=== PATIENT | female | born 1995 ===

== ENCOUNTER 2017-10-11 15:09 | Emergency (ER) | payer SELFPAY ==
[2017-10-11] MEDS ORDERED: Albuterol/Ipratropium NEB.SOL* Albuterol 2.5 MG/Ipratropium 0.5 MG 3 ML INH ONE (15:38)
--- NOTE | 2017-10-11 15:40 | UC ---
Throat Pain/Nasal Judah HPI - HPI Summary HPI Summary: This is Baldev alvarez, documenting for attending Samina Zhu MD. Pt is a 22 y/o F c/o throat pain and congestion onset ~3 days ago. Pt states throat feels full. Painful swallowing. No drooling. Pt states when takes a deep breath feels like pressure in the midline upper sternal area. No pain at rest. Pt reports also with deep breath feels "pinch" over left lower lung. No SOB. Pt reports sinus pressure. Pt with cough with yellow sputum. mild wheeze. No abd pain. No n/v/d. Pt has taken Sudaged and Mucinex with little improvement. No sick contact. no travel. No h/o asthma but has use an MDI previously - did not use this illness. No travel. No h/o blood clots personally or family. Pt's medications reviewed this visit. - History of Current Complaint Chief Complaint: UCChestPain Stated Complaint: SHORTNESS OF BREATH,CHEST PAIN,DIZZY Time Seen by Provider: 10/11/17 15:18 Hx Obtained From: Patient Hx Last Menstrual Period: 06/07/17 Onset/Duration: Gradual Onset Pain Intensity: 1 Pain Scale Used: 0-10 Numeric Cough: Productive Associated Signs & Symptoms: Positive: Wheezing - Allergies/Home Medications Allergies/Adverse Reactions: Allergies Allergy/AdvReac Type Severity Reaction Status Date / Time No Known Allergies Allergy Verified 10/11/17 15:28 Home Medications: Home Medications Gabapentin CAP(*) [Neurontin 100 mg CAP(*)] 200 mg PO DAILY 10/11/17 [History Confirmed 10/11/17] Guaifenesin/Dextromethorphan [Mucinex Dm ER 600-30 mg Tablet] 1 tab PO Q12HR PRN 10/11/17 [History Confirmed 10/11/17] Pseudoephedrine TAB* [Sudafed TAB*] 60 mg PO Q8HR PRN 10/11/17 [History Confirmed 10/11/17] lamoTRIgine TAB(*) [Lamictal TAB(*)] 100 mg PO DAILY 10/11/17 [History Confirmed 10/11/17] PMH/Surg Hx/FS Hx/Imm Hx Previously Healthy: Yes Endocrine History: Other Other Endocrine History: NEG: DM Cardiovascular History: Other Other Cardiovascular History: NEG: CAD, HTN - Surgical History Surgical History: Yes Surgery Procedure, Year, and Place: breast augmentation. tonsilectomy - Family History Known Family History: Negative: Cardiac Disease, Hypertension, Diabetes - Social History Occupation: Unemployed, Student Lives: Alone Alcohol Use: Weekly Substance Use Type: None Smoking Status (MU): Light Every Day Tobacco Smoker Type: Cigarettes Amount Used/How Often: 1 pack/3 days Review of Systems Constitutional: Negative Skin: Negative ENT: Sore Throat, Sinus Congestion Respiratory: Shortness Of Breath, Cough - productive, Other - POS: wheezing. Cardiovascular: Chest Pain - "pressure" Motor: Negative All Other Systems Reviewed And Are Negative: Yes Physical Exam - Summary Physical Exam Summary: Vital Signs Reviewed: Yes A+Ox3, no distress Eyes: Conjunctiva Clear, CHESTER. EOM intact and full ENT: Hearing grossly normal TM x 2 clear, turbinates inflammed and boggy. + TTP max sinus L>R + PND mmoist, uvula midline, no exudate, no erythema Neck: Positive: Supple Respiratory: Positive: + intermittent coarse cough. mild scattered wheeze. rhonci left lung base No respiratory distress, No accessory muscle use + CTA throughout no w/r chest sternal pain reproducible with direct palpation Cardiovascular: RRR nl s1, s2 no m/r CBT <2 sec abd soft + BS nt/nd no guarding, no distension Musculoskeletal Exam: BURNS x 4 without difficulty Strength Intact, ROM Intact Neurological: Positive: Alert, + sensation throughout Psychological: Positive: Normal Response To Family Skin: Positive: no rash, no ecchymosis Triage Information Reviewed: Yes Vital Signs: Initial Vital Signs Temp 98.6 F 10/11/17 15:12 Pulse 84 10/11/17 15:12 Resp 18 10/11/17 15:12 BP 122/78 10/11/17 15:12 Pulse Ox 100 10/11/17 15:12 Diagnostics - Radiology CXR Xray Interpretation: No Acute Changes - IMPRESSION: No evidence for pneumonia. No evidence for acute intrathoracic disease. Radiology Interpretation Completed By: Radiologist - ED physician reviewed this radiology report. - EKG EKG Comments: 1514 Cardiac Rate: NL - 82 bpm Cardiac Rhythm: Sinus: Normal ST Segment: Normal Re-Evaluation - Re-Evaluation First Eval Re-Evaluation Time: 16:39 Change: Improved Comment: She is feeling better; pain has resolved; wheezing has resolved since treatment. coughing improved. Will Rx Albuterol MDI and Amox. secretion precaution. return precaution. physician referral center. pt comfortable and in agreement with plan Throat Pain/Nasal Course/Dx - Course Course Of Treatment: Patient presents to urgent care reporting 3-4 days of head cold. Patient reports she's got some ear fullness, sinus pressure, sore throat. Patient states today she felt a little short of breath related to her sore throat and postnasal drip. Patient also complaining of substernal chest pain that is worse with deep breath. On exam, patient with turbinates inflamed , mild erythema of her posterior pharynx. Patient also with postnasal drip. Patient with reproducible chest wall pain along her anterior sternum. Patient does have some scattered wheezes and rhonchi left base. Patient without any accessory muscle use. Patient's vital signs stable and reviewed. Patient's EKG also reviewed are findings. We'll give a DuoNeb, his chest x-ray, check for rapid strep. Patient comfortable in agreement with plan. - Differential Dx/Diagnosis Provider Diagnoses: acute sinusitis. acute bronchitis Discharge - Sign-Out/Discharge Documenting (check all that apply): Patient Departure - Patient will be discharged home. All imaging exams completed and their final reports reviewed: Yes - Discharge Plan Condition: Stable Disposition: HOME Prescriptions: Albuterol HFA INHALER* [Ventolin HFA Inhaler*] 1 puff INH Q4H PRN #1 mdi PRN Reason: wheeze, cough Amoxicillin PO (*) [Amoxicillin 500 MG CAP*] 500 mg PO Q12H #20 cap Patient Education Materials: Acute Bronchitis (ED), Rhinosinusitis (ED) Referrals: [facility] [Outside] - 2 Days Additional Instructions: - Stay well hydrated. Drink plenty of non-alcoholic, non-caffinated beverages. - Alternate ibuprofen (Advil, Motrin) 600mg and Tylenol every 3 hours for pain or fever. Take with food. Do NOT take for more than 4-5 days. - These infections are spread by secretions - do NOT share eating or drinking utensils - clean items you share with other people such as cell phones, computer mouse, TV remote, computer tablets,etc. Once you have been antibiotics for 2 days, change your toothbrush and your pillowcase. --Use your albuterol puffer - 2 puffs ever 4-6 hours for the next 2 days - then as needed - get plenty of restful sleep - okay to take over the counter decongestant and cough medication - contact your doctor or return with questions or concerns. you have been given referral information for the physician referral center - okay to contact them to establish with a primary care provider - Billing Disposition and Condition Condition: STABLE Disposition: Home - Attestation Statements Document Initiated by Lilyibe: Yes Documenting Scribe: Baldev Marshall Provider For Whom Scribe is Documenting (Include Credential): Samina Zhu Scribe Attestation: IBaldev, lilyibed for Samina hZu on 10/11/17 at 1811. Scribe Documentation Reviewed: Yes Provider Attestation: The documentation as recorded by the scribeBaldev accurately reflects the service I personally performed and the decisions made by me, Samina Zhu
--- NOTE | 2017-10-11 16:25 | RAD ---
INDICATION: Cough, wheezing, rhonchi at the LEFT lung base. Chest pain. COMPARISON: No relevant prior exams available on the [facility] PACS for comparison. TECHNIQUE: Dual energy PA and routine lateral views of the chest were obtained. REPORT: Breast augmentation prostheses noted. Clear lungs and pleural spaces. Negative for pneumothorax. The heart, pulmonary vasculature, and mediastinal contours are unremarkable. Unremarkable osseous structures and soft tissue contours. IMPRESSION: #. No evidence for pneumonia. No evidence for acute intrathoracic disease.
== END 2017-10-11 16:55 | disposition home or self-care (01) ==
LOC: UCEAST 15:09
DX: J01.90 Acute sinusitis, unspecified (principal); J20.9 Acute bronchitis, unspecified; F17.210 Nicotine dependence, cigarettes, uncomplicated
CPT/HCPCS: 71046; 87651; 93005; 99202; A9270-GY; G0463

== ENCOUNTER 2017-10-16 05:28 | Emergency (ER) | payer SELFPAY ==
--- NOTE | 2017-10-16 05:58 | ED ---
HPI Chest Pain - HPI Summary HPI Summary: Pt. is a 22 y.o female who presents to the ER with complaints of chest pain, SOB , left posterior shoulder pain and decreased sensation to left arm. Pt. states symptoms started about an hour ago when she was hanging out with friends. Pt. admits to 5-6 ETOH drinks [employer]. She denies any falls or trauma. Past medical hx of anxiety and depression. Pt. states she was treated for bronchitis last week and her symptoms have been improving. She is on OCP. Pt. otherwise denies h/a, injury, abd. pain, V/D, urinary sxs. Symptoms are moderate in severity. Moving left arm and deep inspiration makes symptoms worse. Rest makes symptoms better. - History of Current Complaint Chief Complaint: EDChestWallPain Time Seen by Provider: 10/16/17 05:48 Hx Obtained From: Patient Hx Last Menstrual Period: 06/07/17 Pain Intensity: 4 - Allergy/Home Medications Allergies/Adverse Reactions: Allergies Allergy/AdvReac Type Severity Reaction Status Date / Time No Known Allergies Allergy Verified 10/11/17 15:28 PMH/Surg Hx/FS Hx/Imm Hx Respiratory History: Reports: Hx Asthma - Surgical History Surgery Procedure, Year, and Place: breast augmentation. tonsilectomy Infectious Disease History: No Infectious Disease History: Denies: Traveled Outside the [place] in Last 30 Days - Family History Known Family History: Negative: Cardiac Disease, Hypertension, Diabetes - Social History Alcohol Use: Weekly Substance Use Type: Reports: None Hx Tobacco Use: Yes Smoking Status (MU): Light Every Day Tobacco Smoker Type: Cigarettes Amount Used/How Often: 1 pack/3 days Review of Systems Constitutional: Negative Eyes: Negative ENT: Negative Positive: Chest Pain Positive: Shortness Of Breath Gastrointestinal: Negative Genitourinary: Negative Positive: Other - Pain to left shoulder Positive: Paresthesia - left arm Positive: Anxious All Other Systems Reviewed And Are Negative: Yes Physical Exam Triage Information Reviewed: Yes Vital Signs On Initial Exam: Initial Vitals Temp Pulse Resp BP Pulse Ox 98.7 F 86 18 120/78 98 10/16/17 05:32 10/16/17 05:32 10/16/17 05:32 10/16/17 05:32 10/16/17 05:32 Vital Signs Reviewed: Yes Appearance: Positive: Well-Appearing - Pt. sitting up in bed in NAD. Anxious. Skin: Positive: Warm, Dry Head/Face: Positive: Normal Head/Face Inspection Eyes: Positive: Normal, EOMI, CHESTER, Conjunctiva Clear ENT: Positive: Pharynx normal, TMs normal Neck: Positive: Supple, Other: - No midline tenderness. Pain over the left trapezius muslce. Respiratory/Lung Sounds: Positive: Clear to Auscultation, Breath Sounds Present Cardiovascular: Positive: Normal, RRR Musculoskeletal: Positive: Other - Pain on palpation to left trapezius muslce. Pain with rotation of left shoulder. Good radial pulse. 5/5 strength in bilateral UEs and LEs. Subjective decreased senstation to left forearm. Neurological: Positive: Normal, Alert, Oriented to Person Place, Time, CN Intact II-III, Normal Gait, Finger to Nose - normal, Facial Symmetry, Speech Normal. Negative: Abnormal Gait, Receptive Aphasia, Expressive Aphasia, Cerebellar Dysfunction, Slurred Speech, Pronator Drift Present Psychiatric: Positive: Anxious - [place] Coma Scale Best Eye Response: 4 - Spontaneous Best Motor Response: 6 - Obeys Commands Best Verbal Response: 5 - Oriented Coma Scale Total: 15 Diagnostics - Vital Signs Vital Signs Temp Pulse Resp BP Pulse Ox 10/16/17 05:32 98.7 F 86 18 120/78 98 - Laboratory Result Diagrams: 10/16/17 06:45 10/16/17 06:45 Lab Statement: Any lab studies that have been ordered have been reviewed, and results considered in the medical decision making process. Chest Pain Course/Dx - Course Course Of Treatment: Pt. presenting with subjective paresthesias to left arm as well as shoulder pain and chest pain. Pt. is afebrile with stable vital signs. She has no neurological deficits onexam. Pt. admits to drinking tonight and is very anxious. Her shoulder pain is reproducible. Pt. denies any falls or trauma. Will obtain labs, ecg, chest xray and head ct for further evaluation. WIll give pt. IV fluids, ativan and toradol for pain and muscle relaxant. Blood work is unremarkable including negative d dimer. CT scan and cxr are negative for acute findings per radiology. ECG done at 0609 shows a sinus rhythm of 65 bpm, normal axis, appropriate intervals, early repol. On re-exam pt. is sleeping. Her sxs have improved. She was up to restroom with nurse. She still is rather sleepy after medication. Pt. was examined by Dr. Monreal who feel her sxs are most likely cervical radiculopathy. Pt. observed until she was more awake and dc home. Advised to f.u with [facility] for further evaluation. Tylenol or motrin for pain as directed. To return to ER is sxs change or worsen. - Diagnoses Provider Diagnoses: Atypical chest pain, Cervical radiculopathy Discharge - Sign-Out/Discharge Documenting (check all that apply): Patient Departure - Discharge Plan Condition: Good Disposition: HOME Patient Education Materials: Chest Pain (ED), Cervical Radiculopathy (ED) Referrals: [facility] [Outside] No Primary Care Phys,NOPCP [Primary Care Provider] - Additional Instructions: Call the [facility] tomorrow to schedule a follow up appointment Increase fluids Tylenol or Motrin for pain as directed Apply warm compresses to neck/back Return to ER if symptoms change or worsen - Billing Disposition and Condition Condition: GOOD Disposition: Home
[2017-10-16] MEDS ORDERED: NS 0.9% 1000 ML* 1,000 ML IV ONE (05:59)
[2017-10-16] MEDS ORDERED: LORazepam INJ* 2 MG/ML 1 ML VIAL IV PUSH ONE (06:13)
--- NOTE | 2017-10-16 06:51 | RAD ---
EXAM: CT Head Without Intravenous Contrast CLINICAL HISTORY: 22 years old, female; Signs and symptoms; Numbness / parasthesia; Left; Additional info: Left arm numbness TECHNIQUE: Axial computed tomography images of the head/brain without intravenous contrast. All CT scans at this facility use at least one of these dose optimization techniques: automated exposure control; mA and/or kV adjustment per patient size (includes targeted exams where dose is matched to clinical indication); or iterative reconstruction. COMPARISON: No relevant prior studies available. FINDINGS: Brain: Unremarkable. No hemorrhage. No significant white matter disease. No edema. Ventricles: Unremarkable. No ventriculomegaly. Bones/joints: Unremarkable. No acute fracture. Soft tissues: Unremarkable. Sinuses: Unremarkable as visualized. No acute sinusitis. Mastoid air cells: Unremarkable as visualized. No mastoid effusion. IMPRESSION: Normal head/brain CT.
[2017-10-16] MEDS ORDERED: Ketorolac INJ* 30 MG/ML 1 ML VIAL IV PUSH ONE (06:52)
[2017-10-16 07:01] LABS: ABS Basophils 0 10^3/ul (0-0.2); ABS Eosinophils 0 10^3/ul (0-0.6); ABS Lymphocytes 3.4 10^3/ul (1.0-4.8); ABS Monocytes 0.4 10^3/ul (0-0.8); ABS Neutrophils 2.5 10^3/ul (1.5-7.7); ABS Nucleated RBC 0 10^3/ul; Eosinophil % 0.7 % (0-6); Hematocrit 32 % (35-47); Hemoglobin 10.9 g/dl (12.0-16.0); Lymphocyte % 53.1 % (25-47); Mean Corpuscular HGB Conc 34 g/dl (31-36); Mean Corpuscular Hemoglobin 31 pg (27-31); Mean Corpuscular Volume 91 fL (80-97); Mean Platelet Volume 8.6 um3 (7.4-10.4); Nucleated Red Blood Cells % 0.1; Platelet Count 241 10^3/ul (150-450); Red Blood Count 3.49 10^6/ul (4.00-5.40); Red Cell Distribution Width 13 % (10.5-15); White Blood Count 6.4 10^3/ul (3.5-10.8)
[2017-10-16 07:19] LABS: EGFR Non-African American 156.5 (>60)
[2017-10-16] MEDS ORDERED: Potassium Chlor TAB* 20 MEQ TAB.ER PO ONE (07:21)
--- NOTE | 2017-10-16 08:58 | RAD ---
Indication: Chest pain. Single frontal view of the chest performed at 0615 hours was reviewed. Comparison is made with previous exam dated October 11, 2017. No mediastinal shift is noted. Heart is of normal size and configuration. Lung eden appear clear. No pneumothorax is identified. IMPRESSION: NO ACTIVE CARDIOPULMONARY DISEASE IS NOTED.
[2017-10-16 09:49] LABS: Urine Appearance Clear; Urine Blood Negative (Negative); Urine Color Yellow; Urine Ketones Trace (Negative); Urine Protein Negative (Negative); Urine Specific Gravity 1.014 (1.010-1.030); Urine Urobilinogen Negative (Negative)
[2017-10-16 10:26] VITALS: BP 114/65
== END 2017-10-16 10:49 | disposition home or self-care (01) ==
LOC: ED 05:28
DX: R07.89 Other chest pain (principal); M54.12 Radiculopathy, cervical region; F17.210 Nicotine dependence, cigarettes, uncomplicated
CPT/HCPCS: 36415; 70450; 71045; 80053; 80320; 81003; 83735; 84484; 84702; 85025; 85379; 85730; 93005; 96361; 96374; 96375; 99283; A9270-GY; G0480; J1885; J2060

== ENCOUNTER 2017-11-13 18:01 | Emergency (ER) | payer SELFPAY ==
[2017-11-13] MEDS ORDERED: NS 0.9% 500 ML* 500 ML IV ONE (18:26)
--- NOTE | 2017-11-13 18:36 | ED ---
Head Injury - HPI Summary HPI Summary: Patient is a 22 y/o F w/ c/o head injury occurring two days ago. She states that she fainted at 0700, fell and hit her head. LOC was experienced. She woke up and noted a laceration to her left forehead. Patient states that she vomited shortly after waking up. She went to [facility] and had her laceration stitched that day. She did not receive imaging and bloodwork at [facility]. Patient was told that she was likely concussed and to seek further treatment if any worsening Sx arose. She states she has had BRO, neck pain, and dizziness which have progressively worsened since two days ago. Patient also notes experiencing episodes of blurred vision, confusion and nausea. She states she had an episode today at 1700 where her vision almost went black. She went to [facility] and was told to come to ED as they could not do a CT there at the time. PMHx of depression and anxiety. Patient takes gabapetntin, ativan and xanax. She reports Hx of cocaine usage, alcohol usage. Patient notes that she drank heavily the night before the syncopal episode. Last cocaine usage was a month ago. FMHx of HTN, diabetes, heart disease is denied. On triage, pain is rated 7/ 10. Home medications and allergies are reviewed. Possibility of is denied. - History Of Current Complaint Chief Complaint: EDHeadInjury Stated Complaint: DIZZINESS/HEADACHE/STIFF NECK Time Seen by Provider: 11/13/17 18:09 Hx Obtained From: Patient Hx Last Menstrual Period: 06/07/17 Mechanism Of Injury: Fall From A Standing Position Onset/Duration: Started Days Ago - two days ago, Still Present Severity Initially: Severe - 7/10 Pain Intensity: 7 Pain Scale Used: 0-10 Numeric - 7/10 Location of Head Injury: Other: - laceration at left forehead Associated Signs And Symptoms: LOC Duration Unknown, Confusion, Neck Pain, Nausea, Vomiting, Headache, Visual Changes, Other: - dizziness - Allergies/Home Medications Allergies/Adverse Reactions: Allergies Allergy/AdvReac Type Severity Reaction Status Date / Time No Known Allergies Allergy Verified 11/13/17 18:03 Home Medications: Home Medications ALPRAZolam [Alprazolam] 1 mg PO SEE INSTRUCTIONS PRN 11/13/17 [History Confirmed 11/13/17] LORazepam [Lorazepam] 0.5 mg PO BID 11/13/17 [History Confirmed 11/13/17] PMH/Surg Hx/FS Hx/Imm Hx Endocrine/Hematology History: Denies: Hx Diabetes Cardiovascular History: Denies: Hx Hypertension Respiratory History: Reports: Hx Asthma - Surgical History Surgery Procedure, Year, and Place: breast augmentation. tonsilectomy Infectious Disease History: No Infectious Disease History: Denies: Traveled Outside the [place] in Last 30 Days - Family History Known Family History: Negative: Cardiac Disease, Hypertension, Diabetes - Social History Alcohol Use: Weekly Substance Use Type: Reports: None Hx Tobacco Use: Yes Smoking Status (MU): Light Every Day Tobacco Smoker Type: Cigarettes Amount Used/How Often: 1 pack/3 days Review of Systems Positive: Blurred Vision Positive: Vomiting, Nausea Positive: Other - neck pain Positive: Other - laceration to left forehead, repaired Neurological: Other - dizziness, confusion, head injury Positive: Headache, Syncope - LOC All Other Systems Reviewed And Are Negative: Yes Physical Exam - Summary Physical Exam Summary: Appearance: Well appearing, no pain distress Skin: warm, dry, reflects adequate perfusion; suture to left forehead with some edema, abrasion to the nose. Head/face: normal Eyes: EOMI, CHESTER ENT: mucous membranes moist Neck: supple, non-tender Respiratory: CTA, breath sounds present Cardiovascular: RRR, pulses symmetrical Abdomen: non-tender, soft Bowel Sounds: present Musculoskeletal: strength/ROM intact Neuro: normal, sensory motor intact, A&Ox3 Triage Information Reviewed: Yes Vital Signs On Initial Exam: Initial Vitals Temp Pulse Resp BP Pulse Ox 98.5 F 85 16 109/79 99 11/13/17 18:03 11/13/17 18:03 11/13/17 18:03 11/13/17 18:03 11/13/17 18:03 Vital Signs Reviewed: Yes Diagnostics - Vital Signs Vital Signs Temp Pulse Resp BP Pulse Ox 11/13/17 18:03 98.5 F 85 16 109/79 99 - Laboratory Result Diagrams: 11/13/17 18:35 11/13/17 18:35 Lab Statement: Any lab studies that have been ordered have been reviewed, and results considered in the medical decision making process. - EKG 1836 Cardiac Rate: NL - rate of 62 BPM EKG Rhythm: Sinus Rhythm EKG Interpretation: normal axis, normal interval, no QTC Head Injury Course/Dx Course Of Treatment: I supervised the care of the physician stores assistant who assumed care for me. History and physical provided his mind. - Diagnoses Provider Diagnoses: Head injury, Concussion, Depression, Anxiety, Orthostatic syncope Discharge - Sign-Out/Discharge Documenting (check all that apply): Sign-Out Patient Signing out patient TO: John Haynes Receiving patient FROM: Wade Syed - Discharge Plan Condition: Stable Disposition: HOME Patient Education Materials: Concussion (ED), Post Concussion Syndrome (ED) Referrals: No Primary Care Phys,NOPCP [Primary Care Provider] - Additional Instructions: Follow up with primary care. Return to ED for any new or worsening symptoms. - Billing Disposition and Condition Condition: STABLE Disposition: Home - Attestation Statements Document Initiated by Zhane: Yes Documenting Scribe: Miller Viveros Provider For Whom Belae is Documenting (Include Credential): Wade Syed MD Scribe Attestation: Miller Bloom , scribed for Wade Syed MD on 11/14/17 at 0904. Scribe Documentation Reviewed: Yes Provider Attestation: The documentation as recorded by the Miller alvarez accurately reflects the service I personally performed and the decisions made by , Wade Syed MD
[2017-11-13 18:42] LABS: ABS Basophils 0 10^3/ul (0-0.2); ABS Eosinophils 0.1 10^3/ul (0-0.6); ABS Lymphocytes 1.6 10^3/ul (1.0-4.8); ABS Monocytes 0.5 10^3/ul (0-0.8); ABS Neutrophils 3.2 10^3/ul (1.5-7.7); ABS Nucleated RBC 0 10^3/ul; Eosinophil % 0.9 % (0-6); Hematocrit 34 % (35-47); Hemoglobin 11.5 g/dl (12.0-16.0); Lymphocyte % 29.7 % (25-47); Mean Corpuscular HGB Conc 34 g/dl (31-36); Mean Corpuscular Hemoglobin 31 pg (27-31); Mean Corpuscular Volume 92 fL (80-97); Mean Platelet Volume 8.6 um3 (7.4-10.4); Nucleated Red Blood Cells % 0.1; Platelet Count 273 10^3/ul (150-450); Red Blood Count 3.68 10^6/ul (4.00-5.40); Red Cell Distribution Width 13 % (10.5-15); White Blood Count 5.3 10^3/ul (3.5-10.8)
[2017-11-13 18:57] LABS: EGFR Non-African American 92.9 (>60)
--- NOTE | 2017-11-13 19:15 | RAD ---
EXAM: CT Head Without Intravenous Contrast CLINICAL HISTORY: 22 years old, female; Injury or trauma; Fall; Initial encounter; Abrasion; Forehead; Additional info: Head injury fri, headaches TECHNIQUE: Axial computed tomography images of the head/brain without intravenous contrast. All CT scans at this facility use at least one of these dose optimization techniques: automated exposure control; mA and/or kV adjustment per patient size (includes targeted exams where dose is matched to clinical indication); or iterative reconstruction. COMPARISON: BRAIN WO CT BRAIN WO 10/16/2017 6:27 AM FINDINGS: Brain: No intracranial hemorrhage or extra-axial fluid collection. No evidence of mass effect or midline shift. Cash-white matter differentiation is normal. Ventricles: Ventricles and sulci are normal. Bones/joints: No acute osseus lesions or fractures. Soft tissues: Unremarkable. Sinuses: Visualized paranasal sinuses are unremarkable. Mastoid air cells: Mastoid air cells are clear. IMPRESSION: No acute intracranial pathology. To contact [facility] with a general question: [facility] - [phone] For direct physician to physician contact: Physician Hotline - [phone] [facility] ([facility] Facility ID #[id number])
--- NOTE | 2017-11-13 20:20 | PN ---
Progress Note - Progress Note Date of Service: 11/13/17 Note: Patient signed out to me by Dr. Ramos. CT brain negative. Labs unremarkable. Vital signs within normal limits. EKG unremarkable and consistent with prior EKG. Diagnosis concussion and syncope. Patient discharged home in stable condition. <John Haynes - Last Filed: 11/13/17 20:18> - Progress Note Note: See my complete note for history and physical. The care of the physician pharmacy sales assistant was supervised by me. <Wade Syed - Last Filed: 11/14/17 09:05>
[2017-11-13 20:28] VITALS: BP 115/61
== END 2017-11-13 20:27 | disposition home or self-care (01) ==
LOC: ED 18:01
DX: S09.90XA Unspecified injury of head, initial encounter (principal); W18.00XA Striking against unspecified object with subsequent fall, initial encounter; Y92.9 Unspecified place or not applicable; R55 Syncope and collapse; R11.2 Nausea with vomiting, unspecified; H53.8 Other visual disturbances; R51 Headache; R42 Dizziness and giddiness; F17.210 Nicotine dependence, cigarettes, uncomplicated
CPT/HCPCS: 36415; 70450; 80048; 85025; 93005; 99282